=== PATIENT | female | born 1980 | race African-American/Black ===

== ENCOUNTER 2017-02-04 16:02 | Emergency (ER) | payer MEDICAID ==
[~2017-02-04] VITALS: Ht 165.1 cm; Wt 68.9 kg
[2017-02-04 16:25] VITALS: BP 117/87
[2017-02-04 17:43] LABS: Basophils # (auto) 0 uL; Basophils % (auto) 0.3 % (0.0-2.0); DEFINITIVE VIEW TRANSMISSION; Eosinophils # (auto) 0.2 uL; Eosinophils % (auto) 1.7 % (0.0-7.0); Hematocrit 35.2 % (36.0-46.0); Hemoglobin 10.6 g/dL (12.2-16.2); Lymphocytes # (auto) 1.3 uL; Lymphocytes % (auto) 10.7 % (10.0-50.0); Mean Corpuscular Volume 66.7 fL (80.0-100.0); Mean Platelet Volume 7.8 fL (7.4-10.4); Monocytes # (auto) 0.6 uL; Monocytes % (auto) 4.6 % (0.0-12.0); Neutrophils # (auto) 10.4 uL; Neutrophils % (auto) 82.7 % (37.0-80.0); Platelet Count (auto) 410 10^3/uL (140-450); White Blood Cell 12.6 10^3/uL (4.4-10.8)
[2017-02-04 17:53] LABS: Albumin 3.7 g/dL (3.4-5.0); Potassium 4.2 mmol/L (3.5-5.1)
[2017-02-04 17:55] LABS: BUN/Creatinine Ratio 10.1
[2017-02-04 17:58] LABS: Bilirubin, Total 0.3 mg/dL (0.2-1.0); Total Protein 8.4 g/dL (6.4-8.2)
[2017-02-04 17:59] LABS: Red Cell Distribution Width 22.2 % (11.6-16.0)
[2017-02-04 21:21] LABS: Hypochromia Moderate; Microcytosis Marked; Ovalocytes FEW; Platelet Estimate Adequate
[2017-02-04 21:22] LABS: Tear Drop Cells FEW
== END 2017-02-04 23:01 | disposition left against medical advice (07) ==
LOC: EDBD 16:02 → ER 16:09
DX: R55 Syncope and collapse (principal); Z53.21 Procedure and treatment not carried out due to patient leaving prior to being seen by health care provider
CPT/HCPCS: 36415; 80053; 85025; 93005

== ENCOUNTER 2017-02-07 10:12 | Emergency (ER) | payer MEDICAID ==
[~2017-02-07] VITALS: Ht 165.1 cm; Wt 93.0 kg
[2017-02-07 11:09] LABS: Basophils # (auto) 0 uL; Basophils % (auto) 0.5 % (0.0-2.0); DEFINITIVE VIEW TRANSMISSION; Eosinophils # (auto) 0.2 uL; Eosinophils % (auto) 2.6 % (0.0-7.0); Hematocrit 34.4 % (36.0-46.0); Hemoglobin 10.5 g/dL (12.2-16.2); Lymphocytes # (auto) 1.8 uL; Lymphocytes % (auto) 22.9 % (10.0-50.0); Mean Corpuscular Hemoglobin 20.2 pg (28.0-32.0); Mean Corpuscular Hgb Conc. 30.4 g/dL (32.0-36.0); Mean Corpuscular Volume 66.5 fL (80.0-100.0); Mean Platelet Volume 8.3 fL (7.4-10.4); Monocytes # (auto) 0.4 uL; Monocytes % (auto) 4.5 % (0.0-12.0); Neutrophils # (auto) 5.5 uL; Neutrophils % (auto) 69.5 % (37.0-80.0); Platelet Count (auto) 409 10^3/uL (140-450); White Blood Cell 7.9 10^3/uL (4.4-10.8)
[2017-02-07 11:19] LABS: Red Cell Distribution Width 22.1 % (11.6-16.0)
[2017-02-07] MEDS ORDERED: KETOROLAC TROMETH 60MG/2ML VIAL IM ONE (11:45)
[2017-02-07 12:00] LABS: Albumin 3.4 g/dL (3.4-5.0); Alkaline Phosphatase 82 U/L (45-117); Anion Gap 9 (5-15); Aspartate Aminotransferase 14 U/L (15-37); BUN/Creatinine Ratio 8.8; Bilirubin, Total 0.3 mg/dL (0.2-1.0); Blood Urea Nitrogen 8 mg/dL (7-18); Calcium 8.9 mg/dL (8.5-10.1); Carbon Dioxide 26 mmol/L (21-32); Chloride 106 mmol/L (98-107); GFR African American 89 mL/min; GFR Non-African American 74 mL/min; Glucose 93 mg/dL (74-106); Magnesium 2.4 mg/dL (1.6-2.6); Potassium 4.2 mmol/L (3.5-5.1); Sodium 141 mmol/L (136-145); Total Protein 8.5 g/dL (6.4-8.2)
[2017-02-07 12:22] LABS: Anisocytosis Moderate; Hypochromia Moderate; Microcytosis Moderate; Platelet Estimate Adequate
[2017-02-07 12:41] VITALS: BP 102/73
== END 2017-02-07 12:48 | disposition home or self-care (01) ==
LOC: ER 10:12
DX: R07.89 Other chest pain (principal); F41.9 Anxiety disorder, unspecified; N39.0 Urinary tract infection, site not specified; Z88.0 Allergy status to penicillin; R42 Dizziness and giddiness; R51 Headache
CPT/HCPCS: 36415; 71020; 80053; 81002; 83735; 84484; 85025; 93005; 96372; 99285; J1885

== ENCOUNTER → 2018-12-15 | Outpatient (CLI) | payer OTHER | END | disposition home or self-care (01) | LOC: LAB 10:18 | PROVIDERS: ATTEND Preventive Medicine Preventive Medicine/Occupational Environmental Medicine | DX: Z02.1 Encounter for pre-employment examination (principal) | CPT/HCPCS: 36415; 86706; 86735; 86762; 86765; 86787 ==

== ENCOUNTER 2019-10-31 14:05 | Emergency (ER) | payer MEDICAID, OTHER ==
[~2019-10-31] VITALS: Ht 165.1 cm; Wt 103.0 kg
[2019-10-31 14:59] LABS: Basophils % (auto) 0.6 % (0.0-2.0); Mean Corpuscular Hemoglobin 19.3 pg (28.0-32.0); Mean Corpuscular Hgb Conc. 30.8 g/dL (32.0-36.0)
[2019-10-31 15:01] LABS: Basophils # (auto) 0 uL; Eosinophils # (auto) 0.3 uL; Eosinophils % (auto) 3.6 % (0.0-7.0); Hematocrit 30.7 % (36.0-46.0); Hemoglobin 9.4 g/dL (12.2-16.2); Lymphocytes # (auto) 2.3 uL; Lymphocytes % (auto) 28.8 % (10.0-50.0); Mean Corpuscular Volume 62.7 fL (80.0-100.0); Monocytes # (auto) 0.5 uL; Monocytes % (auto) 6.7 % (0.0-12.0); Neutrophils # (auto) 4.8 uL; Neutrophils % (auto) 60.3 % (37.0-80.0); Nucleated Red Blood Cells % 0.1 %; Platelet Count (auto) 341 10^3/uL (140-450); Red Blood Cells 4.89 10^6/uL (4.0-5.20)
[2019-10-31 15:03] LABS: Red Cell Distribution Width 22.4 % (11.8-14.3)
[2019-10-31 15:18] LABS: INR 1.02 (0.9-1.15); Partial Thromboplastin Time 24.4 sec (23.64-32.05)
[2019-10-31 15:46] LABS: Alanine Aminotransferase 13 U/L (13-56); Albumin 3.1 g/dL (3.4-5.0); Anion Gap 5 (5-15); Aspartate Aminotransferase 12 U/L (15-37); Blood Urea Nitrogen 8 mg/dL (7-18); Calcium 8.7 mg/dL (8.5-10.1); Carbon Dioxide 27 mmol/L (21-32); Chloride 107 mmol/L (98-107); Glucose 85 mg/dL (74-106); Potassium 3.8 mmol/L (3.5-5.1); Sodium 139 mmol/L (136-145)
[2019-10-31 15:51] LABS: Alkaline Phosphatase 72 U/L (45-117); BUN/Creatinine Ratio 9.3; Bilirubin, Total 0.3 mg/dL (0.2-1.0); GFR African American 94 mL/min; GFR Non-African American 77 mL/min
[2019-10-31 17:35] VITALS: BP 126/65
== END 2019-10-31 17:46 | disposition home or self-care (01) ==
LOC: ER 14:05
DX: R07.89 Other chest pain (principal); F41.1 Generalized anxiety disorder; Z88.0 Allergy status to penicillin
CPT/HCPCS: 36415; 80053; 83880; 84484; 85025; 85610; 85730; 93005

== ENCOUNTER → 2020-05-29 | Outpatient (CLI) | payer OTHER | END | disposition home or self-care (01) | LOC: LAB 13:42 | PROVIDERS: ATTEND Physician Assistant | DX: U07.1 COVID-19 (principal) ==